=== PATIENT | male | born 1970 | race Caucasian/White ===

== ENCOUNTER 2020-03-20 10:59 | Emergency (ER) | payer BC, OTHER ==
[~2020-03-20] VITALS: Ht 185.4 cm; Wt 104.5 kg
[~2020-03-20 10:59] MED LIST: ALBU6.7H8 INH
--- NOTE | 2020-03-20 11:29 | NUR ---
PT STATES CP, WORSE WITH DEEP BREATHING SINCE LAST FRIDAY. PT STATES DX WITH PNEUMONIA, GIVEN Z PACK. PT SENT FROM [facility] TODAY FOR CP. DR. SAEZ AT BEDSIDE FOR ASSESSMENT. PT PLACED ON MONITORS, VSS. NO RESPIR DISTRESS. PT GIVEN NEW DOXY SCRIPT BY [facility] [employer] TODAY, HAS NOT FILLED IT YET, ERMD AWARE. PT AWATING LAB DRAWS.
[2020-03-20 11:51] LABS: CHLORIDE 109 mmol/L (98-107)
[2020-03-20 11:55] LABS: BASOPHILS # (AUTO) 0.03 x10^3/uL (0-0.1); BASOPHILS % (AUTO) 1 % (0-1); EOSINOPHILS # (AUTO) 0.15 x10^3/uL (0-0.4); EOSINOPHILS % (AUTO) 2 % (1-7); LYMPHOCYTES # (AUTO) 2.05 x10^3/uL (1-3.4); LYMPHOCYTES % (AUTO) 34 % (22-44); MD NO; MEAN CORPUSCULAR HEMOGLOBIN 30.5 pg (27.5-34.5); MEAN CORPUSCULAR VOLUME 89.6 fL (81-97); MEAN PLATELET VOLUME 8.4 fL (7.4-10.4); MONOCYTES # (AUTO) 0.54 x10^3/uL (0.2-0.8); MONOCYTES % (AUTO) 9 % (2-9); NEUTROPHILS # (AUTO) 3.33 x10^3/uL (1.8-6.8); NEUTROPHILS % (AUTO) 55 % (42-75); PLATELET COUNT 180 x10^3/uL (130-400); RED BLOOD COUNT 5.21 x10^6/uL (4.38-5.82); RED CELL DISTRIBUTION WIDTH 12.8 % (9.4-14.8)
[2020-03-20 11:57] LABS: ALBUMIN 3.6 g/dL (3.4-5.0); ANION GAP 7 mmol/L (5-15); CALCIUM 8.9 mg/dL (8.5-10.1)
[2020-03-20 11:58] LABS: CREATININE 1.15 mg/dL (0.7-1.3)
[2020-03-20 12:12] LABS: TROPONIN I < 0.015 ng/mL (0.000-0.045)
--- NOTE | 2020-03-20 12:34 | NUR ---
TASK RN NOTE: PT CHART UP FOR RECHECK. NAD NOTED WITH PT AT THIS TIME. PT RECLINED IN BED, RESPIRATIONS EVEN AND UNLABORED. SIDE RAIL UP.
[2020-03-20 13:09] VITALS: BP 127/76
== END 2020-03-20 13:11 | disposition home or self-care (01) ==
LOC: ED 12:52
DX: R07.89 Other chest pain (principal); I44.5 Left posterior fascicular block; R94.31 Abnormal electrocardiogram [ECG] [EKG]
CPT/HCPCS: 36415; 80048; 82040; 84484; 85025; 93005; 99284

== ENCOUNTER 2020-05-02 11:33 | Outpatient (CLI) | payer BC | END 2020-05-02 23:59 | disposition home or self-care (01) | LOC: CFH 11:33 | PROVIDERS: ATTEND Nurse Practitioner Family | DX: J18.9 Pneumonia, unspecified organism (principal) | CPT/HCPCS: 71250 ==

== ENCOUNTER 2020-11-06 09:57 | Emergency (ER) | payer BC, OTHER ==
[~2020-11-06] VITALS: Ht 185.4 cm; Wt 102.0 kg
--- NOTE | 2020-11-06 10:24 | NUR ---
SHERON ANDREW AT FOR EXAM. HERE FOR RT KNEE SWELLING. HIT KNEE ON METAL "CHAIR THING" AT WORK, WAS PRESCRIBED KNEE BRACE & CRUTCHES BY VIOLET, TOOK BRACE OFF FRIDAY NIGHT KNEE SWELLED. LIMITED ROM R/T PAIN. PAIN W/ PATELLA PALPATION. DENIES NUMBNESS/TINGLING TO RLE. HX GOUT, RT KNEE PATELLAR BURSITIS. CRUTCHES IN ROOM. PT STATES KNEE BRACE IS IN HIS TRUCK. TOOK IBUPROFEN AT 0300.
[2020-11-06] MEDS ORDERED: KETOROLAC 30 MG/1 ML IM ONE (10:30)
--- NOTE | 2020-11-06 10:37 | NUR ---
TO XR PER LEANNA
[2020-11-06] MEDS ORDERED: KETOROLAC 30 MG/1 ML ONE (10:41)
--- NOTE | 2020-11-06 11:06 | NUR ---
DR ROBERTS AT
--- NOTE | 2020-11-06 11:14 | NUR ---
TORADOL GIVEN PER EMAR
[2020-11-06 11:59] LABS: HCT (SEDRATE) 44.8 % (39.2-51.8)
[2020-11-06 12:00] LABS: BASOPHILS % (AUTO) 0 % (0-1); EOSINOPHILS % (AUTO) 1 % (1-7); LYMPHOCYTES % (AUTO) 30 % (22-44); MEAN CORPUSCULAR HEMOGLOBIN 30.6 pg (27.5-34.5); MEAN CORPUSCULAR HGB CONC 34.7 g/dL (33.2-36.2); MEAN PLATELET VOLUME 8.5 fL (7.4-10.4); MONOCYTES % (AUTO) 8 % (2-9); NEUTROPHILS % (AUTO) 60 % (42-75); PLATELET COUNT 203 x10^3/uL (130-400); RED BLOOD COUNT 5.03 x10^6/uL (4.38-5.82); RED CELL DISTRIBUTION WIDTH 13.4 % (9.4-14.8)
[2020-11-06 12:07] LABS: C-REACTIVE PROTEIN, QUANT 0.83 mg/dL (0.02-0.49)
[2020-11-06 12:18] LABS: MD NO
--- NOTE | 2020-11-06 12:19 | NUR ---
RESTING QUIETLY ON GURNEY, USING CELL PHONE, CALL LIGHT W/IN REACH, SIDE RAIL UP X1. REPORTS DECREASE IN PAIN.
[2020-11-06] MEDS ORDERED: VITAMIN D (12:25)
[2020-11-06] MEDS ORDERED: MULTIVITAMIN (12:25)
[2020-11-06] MEDS ORDERED: FLUT200B INH (12:25)
[2020-11-06] MEDS ORDERED: MAGNESIUM (12:25)
--- NOTE | 2020-11-06 13:20 | NUR ---
SHERON ANDREW AT BS TO DISCUSS POC
--- NOTE | 2020-11-06 13:55 | NUR ---
TARIFF COUNSEL AT BS FOR KNEE IMMOBILIZER APPLICATION
[2020-11-06 14:07] VITALS: BP 106/67
== END 2020-11-06 14:09 | disposition home or self-care (01) ==
LOC: ED 12:58
DX: M70.41 Prepatellar bursitis, right knee (principal); G89.11 Acute pain due to trauma; J45.909 Unspecified asthma, uncomplicated
CPT/HCPCS: 29505; 36415; 73564; 84550; 85025; 85651; 86140; 87040; 96372; 99285; J1885